=== PATIENT | female | born 1955 | race Hispanic/Latino ===

== ENCOUNTER → 2019-08-19 | Outpatient (CLI) | payer OTHER ==
[~2019-08-19] VITALS: Ht 152.4 cm; Wt 60.7 kg
[~2019-08-19] MED LIST: ALBU18HF7 IH; ASTRAGALUS PO; BIOTIN PO; BUDE10.2 IH; CEFAZOLIN SODIUM 1 GM VIAL IVP SCH; FLUO20CA30 PO; GENTAMICIN 80 MG/NS 100 ML PB 100 ML IV SCH; GLUC-172 PO; MAGNESIUM PO; MELA1TAB21 PO; MONT10TA24 PO; OMEGA 3 PO; PROGESTERONE PO; VITA1CAP85 PO; [UNRECOGNIZED DRUG - REMARK] TP
[2019-08-19 11:18] LABS: BASOPHILS % (AUTO) 1.2 % (0.0-5.0); EOSINOPHILS % (AUTO) 3.4 % (0.0-8.0); HEMATOCRIT 41.9 % (36-48); MEAN CORPUSCULAR HEMOGLOBIN 30.9 pg (27.0-33.0); MEAN CORPUSCULAR HGB CONC 33.3 g/dL (32.0-36.0); MEAN CORPUSCULAR VOLUME 92.6 fL (79-99); MONOCYTES % (AUTO) 7.1 % (3.0-13.0); NEUTROPHILS % (AUTO) 62.3 % (40.0-77.0); NUCLEATED RED BLOOD CELLS 0.1 % (0.0-0.19); PLATELET COUNT (AUTO) 194 K/uL (130-400); RED BLOOD CELL COUNT(AUTO) 4.52 MIL/uL (4.00-5.50); RED CELL DISTRIBUTION WIDTH 12.6 % (11.0-15.5); WHITE BLOOD COUNT (AUTO) 6.7 K/uL (4.8-10.8)
[2019-08-19 11:25] VITALS: BP 96/55
--- NOTE | 2019-08-19 11:48 | NUR ---
EKG MESSAGE LEFT ON DR. PHAM CELL PHONE TO REPORT ABNORMAL EKG. PENDING CALL BACK
--- NOTE | 2019-08-19 12:54 | NUR ---
ekg received call back as per Dr. Meghana ruiz to proceed with sx. no further orders given on abnormal ekg reported
== END ==
LOC: DAH 10:00 → EDSTATUS 09-07 08:00
PROVIDERS: ATTEND Specialist
DX: N95.0 Postmenopausal bleeding (principal); F17.210 Nicotine dependence, cigarettes, uncomplicated; K21.9 Gastro-esophageal reflux disease without esophagitis; Q21.3 Tetralogy of Fallot; Z79.899 Other long term (current) drug therapy
CPT/HCPCS: 36415; 85025; 93005; A6260

== ENCOUNTER 2019-09-07 09:54 | Day surgery (SDC) | payer OTHER ==
[2019-09-06 16:07] VITALS: BP 108/59
[2019-09-06 16:28] LABS: BASOPHILS % (AUTO) 1.5 % (0.0-5.0); EOSINOPHILS % (AUTO) 3.4 % (0.0-8.0); HEMATOCRIT 42.2 % (36-48); LYMPHOCYTES % (AUTO) 31.5 % (21.0-51.0); MEAN CORPUSCULAR HEMOGLOBIN 30.7 pg (27.0-33.0); MEAN CORPUSCULAR HGB CONC 33.6 g/dL (32.0-36.0); MEAN CORPUSCULAR VOLUME 91.4 fL (79-99); MONOCYTES % (AUTO) 7.1 % (3.0-13.0); NEUTROPHILS % (AUTO) 56.5 % (40.0-77.0); NUCLEATED RED BLOOD CELLS 0.1 % (0.0-0.19); PLATELET COUNT (AUTO) 203 K/uL (130-400); RED BLOOD CELL COUNT(AUTO) 4.61 MIL/uL (4.00-5.50); RED CELL DISTRIBUTION WIDTH 12.6 % (11.0-15.5)
--- NOTE | 2019-09-06 16:29 | NUR ---
EKG OK PER DR. BASHIR, NO FURTHER ORDERS
[~2019-09-07] VITALS: Ht 154.9 cm; Wt 59.6 kg
[2019-09-07] VITALS (15 sets, daily range): BP systolic 98–127; BP diastolic 56–77
[~2019-09-07 09:54] MED LIST changes: -ALBU18HF7 IH; -ASTRAGALUS PO; -BIOTIN PO; -GLUC-172 PO; -MAGNESIUM PO; -MELA1TAB21 PO; -OMEGA 3 PO; +SYMBICORT; -VITA1CAP85 PO; -[UNRECOGNIZED DRUG - REMARK] TP
[2019-09-07] MEDS ORDERED: LIDOCAINE PF 2% 5ML ABBOJECT ONE (10:44)
[2019-09-07] MEDS ORDERED: MIDAZOLAM HCL 1 MG/ML 2ML VIAL ONE (10:44)
[2019-09-07] MEDS ORDERED: PROPOFOL 10 MG/ML 20ML VIAL IV ONE (10:44)
[2019-09-07] MEDS ORDERED: FENTANYL CITRATE PF 50 MCG/1 ML 2ML VIAL ONE (10:45)
[2019-09-07] MEDS: LACTATED RINGERS 1000ML 1,000 ML IV SCH ×2 (10:59→11:26)
[2019-09-07] MEDS ORDERED: A20IH1 IH (11:15)
[2019-09-07] MEDS ORDERED: GLYCOPYRROLATE 1 MG/5 ML SYRINGE ONE (11:29)
[2019-09-07] MEDS ORDERED: PHENYLEPHRINE HCL 10 MG/ML 1ML VIAL IV ONE (11:34)
[2019-09-07] MEDS ORDERED: EPHEDRINE SULFATE 50 MG/ML AMPULE ONE (11:35)
[2019-09-07] MEDS ORDERED: ONDANSETRON HCL 4 MG/2 ML VIAL ONE (11:42)
--- NOTE | 2019-09-07 12:40 | NUR ---
post received pt back from [facility],s/p d&c , OB PAD in place,no bleeding noted. Patient awake and alert,no distress noted.pt denied any pain or discomforts. vs stable , call light within reach
--- NOTE | 2019-09-07 13:15 | NUR ---
dc pt dc home via [place], no distress noted. , pt denied any pain or discomforts. pt accompanied by family friend
== END 2019-09-07 13:15 | disposition home or self-care (01) ==
LOC: DAH 09:54
PROVIDERS: ATTEND Specialist
DX: N95.0 Postmenopausal bleeding (principal); N88.2 Stricture and stenosis of cervix uteri; E78.5 Hyperlipidemia, unspecified; K21.9 Gastro-esophageal reflux disease without esophagitis; F17.210 Nicotine dependence, cigarettes, uncomplicated; J45.909 Unspecified asthma, uncomplicated; Z79.899 Other long term (current) drug therapy; Z98.890 Other specified postprocedural states
CPT/HCPCS: 36415; 58100; 85025; 88305; 93005; 96365; A4215; A4221; A4222; A4223 ×2; A4351; A4663; J0690 ×2; J1580; J2001; J2250; J2370; J2405; J2704; J3010; J3490 ×2; J7120

== ENCOUNTER 2019-09-27 00:25 | Emergency (ER) | payer OTHER ==
[~2019-09-27 00:25] MED LIST changes: +A20IH1 IH; -CEFAZOLIN SODIUM 1 GM VIAL IVP SCH; -GENTAMICIN 80 MG/NS 100 ML PB 100 ML IV SCH
[2019-09-27] MEDS ORDERED: KETOROLAC TROMETHAMINE 30MG/ML ONE (01:57)
== END 2019-09-27 02:23 | disposition home or self-care (01) ==
LOC: EDH 00:25 → EEVIPCON 00:25 → EDH 02:23
DX: S80.01XA Contusion of right knee, initial encounter (principal); R11.2 Nausea with vomiting, unspecified; Z98.890 Other specified postprocedural states; W18.39XA Other fall on same level, initial encounter; Y93.89 Activity, other specified; Y92.89 Other specified places as the place of occurrence of the external cause; Y99.8 Other external cause status
CPT/HCPCS: 73562; 96372; 99284; J1885